=== PATIENT | male | born 1965 | race Caucasian/White ===

== ENCOUNTER 2020-05-27 20:52 | Inpatient (IN) ==
[2020-05-27 22:47] LABS: Hematocrit 38 % (42-52); Hemoglobin 13.5 g/dL (14.0-18.0); Mean Corpuscular HGB Conc 36 g/dL (31-36); Mean Corpuscular Hemoglobin 34 pg (27-31); Mean Corpuscular Volume 95 fL (80-94); Mean Platelet Volume 7.2 fL (7.4-10.4); Platelet Count 179 10^3/uL (150-450); Red Blood Count 3.97 10^6 /uL (4.18-5.48); Red Cell Distribution Width 12 % (10-15); White Blood Count 5.9 10^3/uL (3.5-10.8)
[2020-05-27 22:55] LABS: ABS Eosinophils 0.2 10^3/ul (0-0.6); ABS Lymphocytes 0.5 10^3/ul (1.0-4.8); ABS Monocytes 1.6 10^3/ul (0-0.8); ABS Neutrophils 3.7 10^3/ul (1.5-7.7); Eosinophil % 3.1 %; Lymphocyte % 8.2 %
[2020-05-27 23:02] LABS: Albumin 3.2 g/dL (3.2-5.2); Albumin/Globulin Ratio 1.2 (1-3); BUN/Creatinine Ratio 7.4 (8-20); C Reactive Protein 72.09 mg/L (<8.01); Calcium 8.1 mg/dL (8.6-10.3); EGFR African American 190.4 (>60); EGFR Non-African American 157.4 (>60); Globulin 2.6 g/dL (2-4); Potassium 3.4 mmol/L (3.5-5.0); Total Bilirubin 0.6 mg/dL (0.2-1.0); Total Protein 5.8 g/dL (6.4-8.9)
[2020-05-27] MEDS ORDERED: Thiamine 100 MG/ML 2 ml VIAL 100 MG, Folic Acid 1 MG, Multiple Vitamin IV ADULT 10 ML i... IV ONE (23:52)
[2020-05-28] MEDS ORDERED: Potassium Chlor 20 meq TAB.ER PO ONE (01:18)
[2020-05-28] MEDS ORDERED: Nicotine GUM 2MG FRUIT FLAVOR PO PRN (01:18)
[2020-05-28] MEDS ORDERED: NS 0.9% 500 ml BAG 500 ML IV ONE (01:20)
[2020-05-28] MEDS ORDERED: Lorazepam PYXIS KEY PRN (01:39)
[2020-05-28] MEDS ORDERED: LORazepam 2 mg VIAL 1 ml IV PUSH SCH (02:00)
[2020-05-28 02:41] LABS: Magnesium 2.3 mg/dL (1.9-2.7)
[2020-05-28] MEDS ORDERED: Collagenase 250 units/gm OINT 1 tube TOPICAL SCH (03:00)
[2020-05-28 03:07] LABS: Folate 9.78 ng/mL (>3.99)
[2020-05-28 03:19] LABS: INR 1.22 (0.82-1.09)
[2020-05-28 03:41] LABS: BUN/Creatinine Ratio 6.5 (8-20); Calcium 8.3 mg/dL (8.6-10.3); EGFR African American 229.1 (>60); EGFR Non-African American 189.4 (>60); Potassium 3.5 mmol/L (3.5-5.0)
[2020-05-28] MEDS: Nicotine PATCH 21 MG/24 HR PATCH TRANSDERM SCH ×2 (04:11→09:45)
[2020-05-28] MEDS ORDERED: Enoxaparin 40 MG/0.4 ML SYR SUBCUT SCH (06:30)
[2020-05-28 07:21] LABS: Albumin 2.8 g/dL (3.2-5.2); Albumin/Globulin Ratio 1.1 (1-3); BUN/Creatinine Ratio 6.1 (8-20); Calcium 7.8 mg/dL (8.6-10.3); EGFR Non-African American 176.1 (>60); Globulin 2.5 g/dL (2-4); Potassium 3.5 mmol/L (3.5-5.0); Total Bilirubin 0.6 mg/dL (0.2-1.0); Total Protein 5.3 g/dL (6.4-8.9)
[2020-05-28] MEDS ORDERED: Multivitamins/Minerals TAB PO SCH (09:00)
[2020-05-28 11:21] VITALS: BP 125/76
[2020-05-28 11:50] LABS: Hepatitis B Surface Antigen Nonreactive (Nonreactive)
[2020-05-28 11:55] LABS: Hepatitis A Ab IgM Negative (Negative)
[2020-05-28 11:56] LABS: Hepatitis B Core IgM Nonreactive (Nonreactive)
[2020-05-28 12:08] LABS: Hepatitis C Antibody Negative (Negative)
== END 2020-05-28 12:45 | disposition home or self-care (01) | DRG 422 ==
LOC: ED 20:52 → MED 05-28 00:58
PROVIDERS: ADMIT Physician Assistant Medical; ATTEND Internal Medicine